=== PATIENT | female | born 1960 | race Caucasian/White ===

== ENCOUNTER 2020-08-23 10:55 | Outpatient (REF) | payer OTHER, SELFPAY | END 2020-08-23 10:56 | disposition home or self-care (01) | LOC: HO.LAB 10:55 | PROVIDERS: Visit Provider Internal Medicine | DX: Z20.828 Contact with and (suspected) exposure to other viral communicable diseases (principal) | CPT/HCPCS: C9803; U0003 ==

== ENCOUNTER 2020-10-13 14:46 | Outpatient (REF) | payer OTHER, SELFPAY | END 2020-10-13 14:47 | disposition home or self-care (01) | LOC: HO.LAB 14:46 | PROVIDERS: Visit Provider Internal Medicine | DX: Z20.828 Contact with and (suspected) exposure to other viral communicable diseases (principal) | CPT/HCPCS: C9803; U0003 ==